=== PATIENT | male | born 1985 | race Caucasian/White ===

== ENCOUNTER 2025-06-26 07:40 | Observation (INO) ==
--- NOTE | 2025-06-17 11:38 | PAT Medication Instructions ---
Medication Instructions Date of Service June 17, 2025 Home Medications acetaminophen 500 mg tablet (Acetaminophen Extra Strength) 500 mg PO TID cholecalciferol (vitamin D3) 125 mcg (5,000 unit) tablet (Vitamin D3) 125 mcg PO QAM gabapentin 300 mg capsule 300 mg PO TID hydrocodone 5 mg-acetaminophen 325 mg tablet 1 tab PO Q6H PRN ibuprofen 800 mg tablet 800 mg PO BID PRN ASK your surgeon for instructions ibuprofen 800 mg tablet 800 mg PO BID PRN DO NOT take the morning of surgery cholecalciferol (vitamin D3) 125 mcg (5,000 unit) tablet (Vitamin D3) 125 mcg PO QAM Take morning of surgery With a small sip of water, OTHERWISE NOTHING TO EAT OR DRINK AFTER MIDNIGHT: acetaminophen 500 mg tablet (Acetaminophen Extra Strength) 500 mg PO TID gabapentin 300 mg capsule 300 mg PO TID hydrocodone 5 mg-acetaminophen 325 mg tablet 1 tab PO Q6H PRN(if needed) Take evening before surgery acetaminophen 500 mg tablet (Acetaminophen Extra Strength) 500 mg PO TID gabapentin 300 mg capsule 300 mg PO TID hydrocodone 5 mg-acetaminophen 325 mg tablet 1 tab PO Q6H PRN(if needed) Other Notes If you have any questions please call us at [phone] or [phone] or [phone] or [phone]
--- NOTE | 2025-06-19 10:16 | Anesthesiology Consultation ---
Date of Service June 19, 2025 Assessment & Plan (1) Encounter for pre-operative examination: - ekg - awaiting surgeon ordered medical clearance, Malathi Dunbar [facility]. PAT testing to be faxed to PCP. 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 Denies illicit substance use, states was able to wean off and stop medication with provider assistance. He states his PCP who is aware recently prescribed him prn hydrocodone for back pain and that his is also aware and is monitoring medication-states he feels he is doing well with this. Surgeon's office made aware. Chart Review Chart Review: Pending: Refer to Additional Notes / Consult section and Patient seen in Pre Admission Testing Teaching & Discussion Pre-Anesthesia Teaching/Discussion Notes: Instructed NPO after midnight before surgery, except medications with 15 cc of water. Medication instructions provided according to the PAT guidelines. History Surgery Operation Date: 06/26/25 11:55 Proposed Procedures p L4-L5 Decompression with Coflex - Orlando Clarke DO Height/Weight Height: 6 ft 5 in Weight: 184.6 kg Allergies Allergy/AdvReac Type Severity Reaction Status Date / Time hydrocodone AdvReac Severe Vicodin-dep Verified 06/19/25 11:08 endency/hansa tation Medications Home Medications Medication Instructions Recorded Confirmed Last Taken acetaminophen 500 mg tablet 500 mg PO TID 06/17/25 06/17/25 Unknown (Acetaminophen Extra Strength) cholecalciferol (vitamin D3) 125 125 mcg PO QAM 06/17/25 06/17/25 Unknown mcg (5,000 unit) tablet (Vitamin D3) gabapentin 300 mg capsule 300 mg PO TID 06/17/25 06/17/25 Unknown hydrocodone 5 mg-acetaminophen 325 1 tab PO Q6H PRN Severe Pain 06/17/25 06/17/25 Unknown mg tablet (Scale Score 7-10) ibuprofen 800 mg tablet 800 mg PO BID PRN Pain 06/17/25 06/17/25 Unknown Additional Notes: Patient instructed can continue surgeon advised Vitamin D. Past Medical History Medical History (Updated 06/19/25 @ 13:03 by Mohini Thompson PA-C) Chronic back pain Degenerative disc disease GERD (gastroesophageal reflux disease) occasional History of anesthesia reaction has had difficulty getting his oxygen levels "back up to normal" after his last 2 surgeries, was not re-intubated per patient. (last surgery 08/2024 at [facility] with shoulder surgery)-notes was prior to sleep diagnosis/treatment History of colitis (2022) diverticulitis? colitis? states he was told it was ulcerative colitis but was never referred to Gastro for any f/u. no current issues. History of pneumonia ~2003 - treated, hospitalized at [facility] - no issues since. Hx MRSA infection (2004) a wound (right wrist) - treated at [facility] with abx - no issues since Lumbar disc herniation L4/L5 Lumbar radiculopathy Situational anxiety back pain Sleep apnea severe -> cpap at night Spinal stenosis Patient denies h/o stroke, seizures, heart attack, heart failure, DM, HTN, blood clots/DVTs or blood transfusions. Exercise / Class Metabolic Activity II 4-5 Yardwork/Stairs/Walk up hill (shortness of breath with one flight of stairs ongoing for several years-denies change or worsening; denies chest discomfort) Past Family History Family History Other No family history of adverse response to anesthesia Past Surgical History Surgical History H/O wrist surgery left wrist reconstruction (traumatic injury) History of appendectomy (2022) S/P arthroscopy of left shoulder (08/2024) "swivel lock" in place S/P epidural steroid injection S/P right knee arthroscopy x3 separate surgeries S/P tonsillectomy and adenoidectomy Past Anesthesia History Other (see above; mother requiring "higher doses of anesthesia") History of PONV No Hx of PONV and No Hx of Motion Sickness Social History Smoking Status: Current every day smoker Smoking cigarettes per day: 1 ppd (advised on npo policy) Do You Dip or Chew Tobacco: No Hx Alcohol Use: Yes Alcohol type: beer alcohol intake frequency: holidays/special occasions only Hx Substance Use: No substance use type: does not use Review of Systems Patient denies chest pain, fever, chills, cough, wheezing, or palpitations. Physical Exam Vital Signs Vitals BP 139/87 P 68 TEMP 97.9 SP02 98% on RA RESP 19 Physical Patient resting comfortably in chair in no acute distress, alert and oriented, responding appropriately throughout visit Full cervical extension range of motion without pain TMD 3.5 finger breadths Mallampati Score 2 Dentition: intact, denies chipped or loose teeth, caps/crowns, implants or bridges Lungs: normal respiratory effort. Good air movement, clear throughout to auscultation, no adventitious breath sounds Cardiac: regular rate and rhythm, no murmurs noted Carotid arteries: negative bruit bilat Lab Results Anesthesia Preop Results Results Anesthesia Widget: WBC 8.77 K/ul (4.8-10.8) 06/19/25 Hgb 15.6 g/dl (14.0-18.0) 06/19/25 Hct 43.2 % (42.0-52.0) 06/19/25 Plt 221 K/uL (130-400) 06/19/25 Na 137 mmol/L (136-145) 06/19/25 K 4.2 mmol/L (3.5-5.1) 06/19/25 Cl 103 mmol/L (98-107) 06/19/25 CO2 27 mmol/L (21-32) 06/19/25 BUN 18 mg/dl (6-23) 06/19/25 Creat 0.90 mg/dl (0.6-1.4) 06/19/25 Glucose Level 81 mg/dl (70-99(Fasting)) 06/19/25 PT 10.3 Seconds (9.0-12.0) 06/19/25 PTT 28 Seconds (21-31) 06/19/25 INR 0.9 (0.9-1.1) 06/19/25 Urine Color Yellow 06/19/25 Urine Appearance Clear (Clear) 06/19/25 Urine pH 6.0 (4.5-7.5) 06/19/25 Urine Specific Langford 1.028 (1.000-1.030) 06/19/25 Urine Protein Negative (Negative) 06/19/25 Urine Glucose (UA) Negative (Negative) 06/19/25 Urine Ketones Trace (Negative) H 06/19/25 Urine Blood Negative (Negative) 06/19/25 Urine Nitrite Negative (Negative) 06/19/25 Urine Bilirubin Negative (Negative) 06/19/25 Urine Urobilinogen Negative (Negative) 06/19/25 Urine Leukocyte Esterase Negative (Negative) 06/19/25 Blood Type AB Negative 06/19/25 Antibody Screen NEGATIVE 06/19/25 Testing Electrocardiogram Date: 06/19/25 Sinus rhythm with 1st degree AV block, rate 65 bpm Cannot rule out anterior infarct, age undetermined Chest X-Ray Date: 10/29/24 *1 view* No compelling radiographic evidence of acute bacterial pneumonia or pulmonary edema
[2025-06-26] MEDS: LR 15ML/HR IV SCH (07:35)
[2025-06-26] MEDS: CeleBREX 200 MG CAP PO SCH (08:10)
[2025-06-26] MEDS: ACETAMINOPHEN 500 MG TAB PO SCH (08:11)
[2025-06-26] MEDS: GABAPENTIN 900 MG DOSE PO SCH (08:11)
[2025-06-26] MEDS ORDERED: PROPOFOL IV EMULSION 10 MG/ML 20 ML VIAL IV ONE (08:15)
[2025-06-26] MEDS ORDERED: DEXAMETHASONE SOD INJ 4 MG/ML VIAL ONE (08:15)
[2025-06-26] MEDS ORDERED: MIDAZOLAM HCL 1 MG/ML 2ML VIAL ONE (08:15)
[2025-06-26] MEDS ORDERED: NEOSTIGMINE METHYLSULFATE 1 MG/ML 10ML VIAL ONE (08:15)
[2025-06-26] MEDS ORDERED: ROCURONIUM BROMIDE 10 MG/ML 5 ML VIAL IV ONE ×2 (08:15→10:03)
[2025-06-26] MEDS ORDERED: ONDANSETRON INJ 2 MG/ML 2 ML VIAL ONE (08:15)
[2025-06-26] MEDS ORDERED: GLYCOPYRROLATE 0.2 MG/ML VIAL ONE (08:15)
[2025-06-26] MEDS ORDERED: LIDOCAINE 2% 2 ML VIAL/AMP(20MG/ML) INFIL ONE (08:15)
[2025-06-26] MEDS ORDERED: SUCCINYLCHOLINE CHLORIDE 20 MG/ML 10 ML VIAL IV ONE (08:31)
--- NOTE | 2025-06-26 08:48 | History & Physical Bridge Note ---
Date of Service June 26, 2025 History & Physical Bridge Note I have examined the patient, reviewed the History & Physical and in the interval since the performance of the History & Physical I have noted the following changes of clinical significance: no changes noted
--- NOTE | 2025-06-26 08:49 | History & Physical Report ---
Date of Service June 26, 2025 Assessment & Plan (1) Lumbar disc herniation with radiculopathy: Plan: L4-L5 decompression with Coflex History of Present Illness Chief Complaint: Back and leg pain Primary Care Provider: Shonda Dunbar PA-C This is a 39-year-old male presents for persistent back and leg pain after failing course of nonoperative care is here for surgical invention. Allergies Allergy/AdvReac Type Severity Reaction Status Date / Time hydrocodone AdvReac Severe Vicodin-dep Verified 06/19/25 11:08 endency/hansa tation Home Medications Medication Instructions Recorded Confirmed Type acetaminophen 500 mg tablet 500 mg PO TID 06/17/25 06/26/25 History (Acetaminophen Extra Strength) cholecalciferol (vitamin D3) 125 125 mcg PO QAM 06/17/25 06/26/25 History mcg (5,000 unit) tablet (Vitamin D3) gabapentin 300 mg capsule 300 mg PO TID 06/17/25 06/26/25 History hydrocodone 5 mg-acetaminophen 325 1 tab PO Q6H PRN Severe Pain 06/17/25 06/26/25 History mg tablet (Scale Score 7-10) ibuprofen 800 mg tablet 800 mg PO BID PRN Pain 06/17/25 06/26/25 History Past Med/Surg History Problem List (Updated 06/26/25 @ 08:49 by Orlando Clarke DO) Lumbar disc herniation with radiculopathy Encounter for pre-operative examination Medical History (Updated 06/26/25 @ 08:49 by Orlando Clarke DO) GERD (gastroesophageal reflux disease) occasional History of anesthesia reaction has had difficulty getting his oxygen levels "back up to normal" after his last 2 surgeries, was not re-intubated per patient. (last surgery 08/2024 at [facility] with shoulder surgery)-notes was prior to sleep diagnosis/treatment History of colitis (2022) diverticulitis? colitis? states he was told it was ulcerative colitis but was never referred to Gastro for any f/u. no current issues. Situational anxiety back pain History of pneumonia ~2003 - treated, hospitalized at [facility] - no issues since. Sleep apnea severe -> cpap at night Lumbar radiculopathy Lumbar disc herniation L4/L5 Spinal stenosis Degenerative disc disease Chronic back pain Hx MRSA infection (2004) a wound (right wrist) - treated at [facility] with abx - no issues since Surgical History History of appendectomy (2022) S/P arthroscopy of left shoulder (08/2024) "swivel lock" in place S/P tonsillectomy and adenoidectomy H/O wrist surgery left wrist reconstruction (traumatic injury) S/P right knee arthroscopy x3 separate surgeries S/P epidural steroid injection Family History Other No family history of adverse response to anesthesia Social History Smoking Status: Current every day smoker Tobacco Type: Cigarettes Cigarettes Per Day: 1 ppd (advised on npo policy); Second Hand Exposure: No; Do You Dip or Chew Tobacco: No; Tobacco Cessation Education Requested by Patient: No Hx Alcohol Use: Yes Alcohol type: beer Hx Substance Use: No Preferred Language: Iraqi Communication Ability: Effective Animal Rides Manager Required: No Beliefs That Will Affect Care: None Current Living Situation: Spouse Other Information That Helps Us Care for You: No Feels Safe at Home: Yes Safety Concerns: Feels Safe At This Time Assistive Devices: Cane, CPAP, Glasses and Walker Assistive Devices Comment: walker prn Physical Exam Physical Exam: Patient is alert and oriented Heart regular rhythm Lungs clear Results & Data Results & Data Vital Signs (Past 12 Hours) Vital Signs Temp Pulse Resp BP Pulse Ox O2 Del Method 06/26/25 08:13 36.9 C 62 16 129/89 97 Room Air
[2025-06-26] MEDS ORDERED: ONDANSETRON INJ 2 MG/ML 2 ML VIAL IV PRN ×2 (09:05→12:52)
[2025-06-26] MEDS ORDERED: ATROPINE SULFATE 0.1 MG/ML 10ML SYR IV PRN (09:05)
[2025-06-26] MEDS: ceFAZolin 3000MG 3,000 MG/72.5 ML BAG IV SCH ×2 (09:31→17:36)
[2025-06-26] MEDS ORDERED: KETAMINE HCL 10MG/ML SYR ONE (09:34)
[2025-06-26] MEDS: BUPIVACAINE/EPINEPHRINE 0.25% 1:200,000 30 ML VIAL ONE (10:02)
[2025-06-26] MEDS ORDERED: LIDOCAINE 2% 20 MG/ML 5 ML SYR IV ONE (10:03)
[2025-06-26] MEDS ORDERED: SUGAMMADEX SODIUM 200 MG/2 ML VIAL IV ONE (10:30)
--- NOTE | 2025-06-26 10:40 | Operative Report ---
Post Operative Report Pre & Post Diagnosis Operation Date: 06/26/25 09:05 Pre-Op Diagnosis: Lumbar Disc Herniation with Radiculopathy Post-Op Diagnosis: Lumbar Disc Herniation with Radiculopathy I identified the patient and participated in the time-out.: Yes Procedure Operation Date: 06/26/25 09:05 Actual Procedures #1 lumbar decompression with bilateral medial facetectomies L4-L5. #2 placement of Coflex 16 mm implant in the interlaminar space at L4-L5. Surgeon Orlando Clarke, DO Batter Depositor Brad Molina Estimated Blood Loss 50 Findings See Below The patient is 6 foot 5 weighing over 182 kg with a BMI in excess of 47. The patient's body habitus did contribute to significant technical difficulty with positioning exposure and the procedure itself. Required our deepest retractors and longus instruments in order to perform this procedure. This had at least 50% increased operative time. I am recommending a modifier 22. Specimens None Indications This is a 39-year-old male presents by much diagnosis after failing since course of nonoperative care is here for surgical invention. Description of Procedure Patient was met with identified informed consent obtained. Patient was then taken to the operative suite underwent ovation placed in prone position on the Peter table on top of the Alistair frame. All bony prominences well-padded eyes inspected to ensure no external pressure placed upon them. This point the lumbar spine was prepped and draped in normal sterile fashion. The assistance of fluoroscopy identified the L4-L5 disc space. Midline incision was created overlying this region. Sharp dissection with the assistance of Bovie cautery from down to and exposing the interlaminar space at L4-L5. The largest self- retaining retractor available was placed. I then performed a midline laminotomy of T4 including bilateral medial facetectomies for complete decompression. I explored the disc space to ensure no loose fragments of disc material present. I then inserted a 16 mm Coflex into the interlaminar space and crimped it into position. The incision was then rj irrigated 10 round CARITO drain inserted. Incision was then closed with 1 Vicryl the fascia 2-0 Vicryl subcutaneously and 4 Monocryl for final skin closure. Steri-Strips sterile dressing placed. Patient waken taken to PACU stable condition. Please note Brad Molina was present of entire procedure and while the patient positioning complex portion of the surgery and final skin closure. I attest to the content of the Intraoperative Record and any orders documented therein. Any exceptions are noted below.
[2025-06-26] MEDS: ceFAZolin 330 MG/ML 1 GM VIAL ONE (10:43)
[2025-06-26] MEDS: FLOSEAL HEMOSTATIC MATRIX 10ML TOP ONE (10:43)
--- NOTE | 2025-06-26 12:33 | Fluoroscopy Report ---
FL lumbar spine 2-3V CLINICAL HISTORY: L4-L5 DECOMPRESSION AND FUSION COMPARISON STUDY: None FLUOROSCOPY TIME: 5 seconds FLUOROSCOPY IMAGES: 2 EXPOSURE DOSE: 6.5 mGy FINDINGS: Fluoroscopy was provided for lower lumbar surgery. IMPRESSION: Intraoperative fluoroscopy. ACT 112: Negative or not required by law. Electronically signed by: Archie Woods M.D. 06/26/2025 12:32 PM
[2025-06-26] MEDS ORDERED: DO NOT ADMINISTER FLU VACCINE PRN (12:52)
[2025-06-26] MEDS ORDERED: NALOXONE HCL 0.4 MG/1 ML VIAL/CARP IV PRN (12:52)
[2025-06-26] MEDS ORDERED: ACETAMINOPHEN 500 MG TAB PO PRN (12:52)
[2025-06-26] MEDS ORDERED: LORazepam 0.5 MG TAB PO PRN (12:52)
[2025-06-26] MEDS ORDERED: MAGNESIUM HYDROXIDE SUSP 30 ML UDC PO PRN (12:52)
[2025-06-26] MEDS ORDERED: ONDANSETRON 4 MG OD TAB PO PRN (12:52)
[2025-06-26] MEDS ORDERED: PROMETHAZINE 12.5 MG/50.5 ML BAG IV PRN (12:52)
[2025-06-26] MEDS ORDERED: DO NOT ADMINISTER PNEUMOCOCCAL VACCINE PRN (12:52)
[2025-06-26] MEDS ORDERED: diphenhydrAMINE Capsule 25 MG CAP PO PRN (12:52)
[2025-06-26] MEDS ORDERED: SOD PHOSPHATE/SOD BIPHOSPHATE ENEMA 132 ML BTL PR PRN (12:52)
[2025-06-26] MEDS ORDERED: HYDROmorphone INJ 0.5 MG/0.5 ML SYR IV PRN (12:52)
[2025-06-26] MEDS ORDERED: METOCLOPRAMIDE HCL INJ 5 MG/ML 2 ML VIAL IV PRN (12:52)
[2025-06-26] MEDS ORDERED: ACETAMINOPHEN 1,000 MG/100 ML VIAL IV PRN (12:52)
[2025-06-26] MEDS ORDERED: FAMOTIDINE 20 MG TAB PO PRN (12:52)
[2025-06-26] MEDS ORDERED: KETOROLAC 30 MG/ML VIAL IV PRN (12:52)
[2025-06-26] MEDS ORDERED: ALUMINUM/MAGNESIUM SUSP 30 ML UDC PO PRN (12:52)
[2025-06-26] MEDS ORDERED: LORazepam Inj 0.5 MG in SYRINGE 0.25 ML IV PRN (12:52)
[2025-06-26] MEDS: LR 60ML/HR IV SCH (14:12)
--- NOTE | 2025-06-26 14:30 | Anesthesiology Progress Note ---
Date of Service June 26, 2025 Anesthesia Post Procedure Vital Signs Vital Signs: Temp Pulse Pulse Resp BP Pulse Ox O2 Del Method 06/26/25 14:00 36.5 C 74 16 125/81 94 Room Air 06/26/25 13:35 71 19 140/81 96 Oxymask 06/26/25 13:05 70 17 144/89 H 94 Oxymask 06/26/25 12:35 66 21 142/91 H 95 Oxymask 06/26/25 12:20 73 18 136/92 96 Oxymask 06/26/25 12:05 74 17 144/97 H 95 Oxymask 06/26/25 11:50 71 17 138/76 94 Nasal Cannula 06/26/25 11:35 36.6 C 83 12 131/100 99 Oxymask 06/26/25 11:25 81 19 131/100 98 Oxymask 06/26/25 11:15 93 H 16 137/78 99 Oxymask 06/26/25 11:05 92 H 17 150/96 H 100 Oxymask 06/26/25 10:58 36.7 C 99 H 20 154/97 H 99 Oxymask 06/26/25 08:13 36.9 C 62 16 129/89 97 Room Air O2 Flow Rate 06/26/25 14:00 06/26/25 13:35 2 06/26/25 13:05 2 06/26/25 12:35 2 06/26/25 12:20 2 06/26/25 12:05 2 06/26/25 11:50 4 06/26/25 11:35 4 06/26/25 11:25 4 06/26/25 11:15 4 06/26/25 11:05 6 06/26/25 10:58 8 06/26/25 08:13 Pain Intensity Lower Back: Pain Intensity: 4 Transfer of Care Handoff Completed per policy Notes Mental Status: alert / awake / arousable Patient Amnestic to Procedure: Yes Nausea / Vomiting: adequately controlled Pain: adequately controlled Airway Patency, RR, SpO2: stable & adequate BP & HR: stable & adequate Hydration State: stable & adequate Anesthetic Complications: no major complications apparent and Pt Satisfied with anesthetic care
[2025-06-26] MEDS: SODIUM CHLORIDE 0.9% 1,000 ML IV SCH (15:16)
[2025-06-26] MEDS: GABAPENTIN 300 MG CAP PO SCH (15:17)
[2025-06-26] MEDS: HYDROmorphone INJ 1 MG/ML SYRINGE IV PRN (21:17)
[2025-06-26] MEDS: DOCUSATE SODIUM/SENNA 50/8.6MG TAB PO SCH (21:18)
[2025-06-27 03:19] VITALS: TEMP 98.1
[2025-06-27] MEDS: POLYETHYLENE (MIRALAX) 17 GM PACK PO SCH (06:26)
[2025-06-27 07:27] VITALS: BP 137/82; PULSE 63; RESP 16; O2SAT 94
--- NOTE | 2025-06-27 10:28 | Discharge Summary ---
Date of Service June 27, 2025 Admission HPI Per Admitting Provider This is a 39-year-old male presents for persistent back and leg pain after failing course of nonoperative care is here for surgical invention. Principal Diagnosis Lumbar disc herniation with radiculopathy Discharge Data Allergies Allergy/AdvReac Type Severity Reaction Status Date / Time hydrocodone AdvReac Severe Vicodin-dep Verified 06/19/25 11:08 endency/hansa tation Procedures Performed Operation Date: 06/26/25 09:05 Actual Procedures p L4-L5 Decompression with Coflex(Not Applicable) - Orlando Clarke DO Ordered Studies 06/26/25 09:05 FL lumbar spine 2-3V Routine Hospital Course (1) Lumbar disc herniation with radiculopathy: Patient underwent lumbar decompression with Coflex interlaminar spacer placement yesterday. He is comfortable this morning. He feels his leg numbness and tingling pain is improved. Has been up and ambulating. CARITO drain has decreased appropriately. Separately discharged home. Discharge orders instructions from the chart for further review. Total Time Total Time Spent Total Time Spent (In Minutes): 20 minutes Discharge Plan Discharge Items Patient Disposition: Home - Self-Care Reason For Visit: Lumbar Disc Herniation with Radiculopathy, Spinal Discharge Diagnosis: Lumbar disc herniation with radiculopathy Activity: As commented below Non-emergency contact: Primary Care Provider Call non-emergency contact if: you have any medication questions Follow-up/Referrals: Shonda Dunbar PA-C [Primary Care Provider] - Diet: Regular Addtl Attending Provider Instructions: ACTIVITY RECOMMENDATIONS: SELF CARE INSTRUCTIONS AFTER A LAMINECTOMY 1. No prolonged sitting (less than 30 minutes for the first 3 weeks after surgery). 2. No bending, lifting more than 5 pounds, or twisting (roll like a log when turning in bed). 3. You may shower 3 days after surgery if no drainage from wound. Thoroughly dry wound. Do not soak in the tub. 4. Please walk as much as you can for exercise. Gradually increase the distance that you walk as your endurance increases. 5. You may drive in 7-10 days if you are comfortable and no longer requiring pain medications. 6. You may return to previous diet. SPECIAL CARE INSTRUCTIONS: VERY IMPORTANT TO READ AND REVIEW A. Your surgical incision has been closed with a cosmetic suture under the skin that will dissolve in about 6 weeks. In 14 days, you can use a pair of clean scissors and cut the suture that is left outside of the skin at the ends of your incision. B. Complications are uncommon, but please contact us if you have any signs or symptoms of: 1. wound infection (fever higher than 102.5 degrees F, redness, separation of wound, drainage, or increasing pain from the incision) 2. blood clots in legs (pain, swelling, redness and warmth in legs) 3. urinary tract infection (fever higher than 102.5 degrees, burning upon urination or increased frequency of urination) 4. nerve problems (inability to walk on your toes or heels, numbness, loss of bowel or bladder control) 5. any other symptoms that concern you. C. Please call the office at if you have any concerns or questions about your operation or recovery. MANAGING PAIN AFTER SPINAL SURGERY 1. Narcotic medication is intended for short-term use and will be provided for surgical pain. Surgical pain usually lasts for a period of 4-6 weeks. Narcotic medication includes Percocet, Vicodin, Darvocet, Tylenol #3 or Lortab. 2. Longer-term pain is more appropriately treated with non-narcotic medication such as Tylenol ES. 3. Muscle spasm is not appropriately treated with narcotics. Muscle relaxers such as Soma, Flexeril or Skelaxin can be used along with Tylenol ES. 4. Remember that we all live with some "aches and pains". This is not unusual or uncommon after an injury or as we get older. 5. We will provide appropriate medication within the normal guidelines of their prescribed use. We will also be very cautious and aware of potential abuse and extended duration of patients' medication needs. 6. Please allow 2-3 days to process refills. Prescriptions will not be mailed but must be picked up at the office. FOLLOW UP VISIT: Keep your scheduled follow-up appointment. Any questions, please call the office at . Pending Studies at Discharge: No Stand-Alone Forms: [employer], Smoking Cessation Medications and DC Order Prescriptions: New tramadol 50 mg tablet 50 mg PO Q6H PRN (Reason: pain, moderate) Qty: 30 0RF oxycodone 5 mg tablet 5 mg PO Q6H PRN (Reason: pain) Qty: 20 0RF Rx Instructions: Oxycodone for severe pain tramadol for moderate pain Continued ibuprofen 800 mg Tablet 800 mg PO BID PRN (Reason: Pain) hydrocodone-acetaminophen 5-325 mg Tablet 1 tab PO Q6H PRN (Reason: Severe Pain (Scale Score 7-10)) Patient Comments: *pt reports he is taking sparingly* acetaminophen [Acetaminophen Extra Strength] 500 mg Tablet 500 mg PO TID gabapentin 300 mg Capsule 300 mg PO TID cholecalciferol (vitamin D3) [Vitamin D3] 125 mcg (5,000 unit) Tablet 125 mcg PO QAM Discharge Orders: Discharge Order (Routine); Ordered 06/27/25 Ordered By: Orlando Clarke Admission Data Admit Date/Time: 06/26/25 10:43 Attending Provider: Orlando Clarke Admit Provider: Orlando Clarke Primary Care Provider: Shonda Dunbar
== END 2025-06-27 11:32 | disposition home or self-care (01) ==
LOC: ASU 07:40 → 3N 07:40